=== PATIENT | male | born 1995 | race Two or more races ===

== ENCOUNTER 2017-11-04 17:38 | Emergency (ER) | payer OTHER ==
[2017-11-04 17:53] VITALS: BP 153/87
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
[2017-11-04] MEDS ORDERED: ACETAMINOPHEN 325 MG TAB PO ONE (18:05)
[2017-11-04] MEDS ORDERED: IBUPROFEN 600 MG TAB PO ONE (18:05)
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
== END 2017-11-04 19:42 | disposition home or self-care (01) ==
LOC: ER 17:55
DX: S00.83XA Contusion of other part of head, initial encounter (principal); S09.90XA Unspecified injury of head, initial encounter; M25.512 Pain in left shoulder; Y04.8XXA Assault by other bodily force, initial encounter
CPT/HCPCS: 70450; 70486; 99283